=== PATIENT | female | born 1945 | race Caucasian/White ===

== ENCOUNTER 2022-10-09 08:27 | Outpatient (REF) | payer MEDICARE, SELFPAY ==
--- NOTE | 2022-10-09 08:33 | EMG_ITS ---
Please see scanned EMG / Nerve Conduction Report. MTDD
== END 2022-10-09 08:28 | disposition home or self-care (01) ==
LOC: HO.NEURO 08:27
PROVIDERS: PCP Family Medicine; Visit Provider Physician Assistant
DX: G56.02 Carpal tunnel syndrome, left upper limb (principal)
CPT/HCPCS: 95885; 95910